=== PATIENT | male | born 1975 | race African-American/Black ===

== ENCOUNTER 2017-12-24 12:14 | Emergency (ER) | payer MEDICAID ==
[~2017-12-24] VITALS: Ht 180.3 cm; Wt 95.5 kg
[2017-12-24 12:59] VITALS: Ht 180.3 cm; Wt 95.5 kg
[2017-12-24] MEDS ORDERED: ACULAR 0.5 % OPH5 ML EACH EYE (14:29)
[2017-12-24] MEDS ORDERED: POLYTRIM EYE DR10 ML EACH EYE (14:29)
[2017-12-24 14:40] VITALS: BP 140/102
== END 2017-12-24 14:41 | disposition home or self-care (01) ==
LOC: D.ER 12:14
DX: S05.02XA Injury of conjunctiva and corneal abrasion without foreign body, left eye, initial encounter (principal); X58.XXXA Exposure to other specified factors, initial encounter; Y93.89 Activity, other specified; Y92.019 Unspecified place in single-family (private) house as the place of occurrence of the external cause; F17.200 Nicotine dependence, unspecified, uncomplicated